=== PATIENT | male | born 1970 | race Caucasian/White ===

== ENCOUNTER 2020-07-06 11:47 | Day surgery (SDC) | payer OTHER ==
[~2020-07-06] VITALS: Ht 185.4 cm; Wt 106.8 kg
[~2020-07-06 11:47] MED LIST: ARTHRITIS PAIN100 GM TOP; CARDIZEM30 MG PO; GABAPENTIN300 MG PO; GLUCOSAMINE1000 MG PO; VITAMIN D-40010 MCG PO
[2020-07-06] MEDS ORDERED: ONE-DAILY MULT1 EAC1 PO (12:06)
--- NOTE | 2020-07-06 13:10 | NUR ---
07/06/20 1310 RUBEN MAGALLANES 1306-PATIENT ARRIVED TO PACU. AWAKE, RESPONDS TO ALL STIMULI. BREATHING EVEN AND UNLABORED, ON 2L OR. ABDOMEN SOFT. PATIENT DENIES DISCOMFORT.
--- NOTE | 2020-07-09 12:23 | OR ---
[facility] [address] [place], [place] [address] Signed DATE OF OPERATION: 07/06/2020 SURGEON: Andrei Roa MD PREOPERATIVE DIAGNOSES: 1. History of anal fissure with rectal bleeding (resolved). 2. Colon screening. POSTOPERATIVE DIAGNOSES: 1. Polyps x4 of colon. 2. Scattered shallow diverticula. PROCEDURE: Total colonoscopy to cecum with cold morcellation polypectomy x4. ANESTHESIA: Intravenous sedation, fentanyl 150 mcg, Versed 8 mg. INDICATIONS: This 49-year-old white man is a patient of CELIA Martell and known to me from the past. The patient has had problems of cough quite sometime ago of rectal bleeding, was found to have an anal fissure, was treated conservatively with diltiazem ointment and so forth. The symptoms ultimately resolved. As his presentation at that time was that of rectal bleeding, I had recommended that a colonoscopy be performed at some point, particularly given his age of 49 years. He currently is having no bleeding, pain upon defecation, or other issues. He has no family history of colon cancer that he is aware of. He is admitted at this time to undergo screening colonoscopy on the basis of his age primarily. He understands the risks of bleeding, infection, and perforation. FINDINGS: The prep was good. Complete colonoscopy was undertaken to the cecum. There was a polyp in the ascending colon, which was relatively small, but which was excised completely. Therefore, three additional polyps, two in the rectosigmoid and one in the rectum, all excised with cold morcellation technique. All the polyps were small and not worrisome for malignancy. DESCRIPTION OF PROCEDURE: The patient was brought to the endoscopy suite and placed in lateral decubitus position given intravenous sedation to the point of slurred speech and nystagmus. Full cardiopulmonary monitoring was maintained. Digital rectal examination showed no Electronically Signed By: ANDREI ROA MD 07/09/20 1223 PATIENT NAME: JAIME BENITEZ OPERATIVE REPORT DATE OF : 66 REPORT #: [id number] PHYSICIAN: ANDREI ROA MD PCP: LAZARO TIDWELL PA-C REPORT IS CONFIDENTIAL AND NOT TO BE RELEASED WITHOUT AUTHORIZATION [facility] [address] [place], [place] [address] Signed tenderness and no clinical findings suggestive of fissure or other abnormality. An Olympus video colonoscope was passed into the rectum and manipulated throughout the colon noting a few scattered diverticula throughout. Ultimately, the cecum was intubated. The ileocecal valve and appendiceal orifice were normal. Irrigation was undertaken in this area. Biopsies were taken of the cecum as there appeared to be mild inflammatory change. The scope was withdrawn from that point. In the proximal ascending colon, there was a small sessile polyp, which was excised with cold morcellation technique. The scope was further withdrawn and there were no other findings until the rectosigmoid, where two very small polyps were noted. Both were excised with cold morcellation technique. Further withdrawal of the rectum showed another similar such polyp that was excised as well, it may have been hyperplastic. Retroflexed view showed no sign of internal hemorrhoids. Careful withdrawal of scope through the anal canal showed no fissure. The scope was removed and the patient was taken to the recovery room in good condition. CONCLUDING DIAGNOSES: 1. Polyps x4, small and benign. 2. Scattered diverticula. 3. Healed anal fissure. PLAN: Recommend continued use of a high-fiber diet. Repeat colonoscopy in 5 years or sooner if symptoms should occur. We will review his pathology report to ascertain there were no adverse findings of the polyps. MD JETT Mosher/UMANGL /[id number] Copies: ~ Electronically Signed By: ANDREI ROA MD 07/09/20 1223 PATIENT NAME: JAIME BENITEZ OPERATIVE REPORT DATE OF : 66 REPORT #: [id number] PHYSICIAN: ANDREI ROA MD PCP: LAZARO TIDWELL PA-C REPORT IS CONFIDENTIAL AND NOT TO BE RELEASED WITHOUT AUTHORIZATION
--- NOTE | 2020-07-10 12:54 | PATH ---
[facility] [address] [place], [place] [address] Signed SPECIMEN(S): A CECUM SPECIMEN(S): B ASCENDING POLYP SPECIMEN(S): C SIGMOID POLYP SPECIMEN(S): D RECTAL POLYP SPECIMEN SOURCE: A. CECUM B. ASCENDING POLYP C. SIGMOID POLYP D. RECTAL POLYP CLINICAL HISTORY: Rectal bleeding/screening colonoscopy with possible biopsies. MICROSCOPIC DESCRIPTION: Histologic sections of all submitted blocks are examined by light microscopy. These findings, together with the gross examination, support the pathologic diagnosis. FINAL PATHOLOGIC DIAGNOSIS: A. Colon, cecum, biopsy: - Colonic mucosa with no histopathologic abnormality. - Negative for dysplasia or malignancy. B. Colon, ascending, polyp, polypectomy: - Fragments of tubular adenoma. - Negative for high-grade dysplasia or malignancy. C. Colon, sigmoid, polyp, polypectomy: - Hyperplastic polyp. - Negative for dysplasia or malignancy. D. Rectum, polyp, polypectomy: - Fragments of hyperplastic polyp. - Negative for dysplasia or malignancy. NAL:cml:C2NR GROSS DESCRIPTION: Four specimens are received in four containers, labeled "SB." A. The specimen, labeled "SB, 1," and designated on the requisition "cecum," is received in formalin and consists of two aguirre soft tissue fragments that measure 0.3 cm in greatest dimension. The specimen is entirely submitted in cassette (A1). B. The specimen, labeled "SB, 2," and designated on the requisition "ascending colon polyp," is received in formalin and consists of two aguirre soft tissue PATIENT NAME: JAIME BENITEZ PATHOLOGY DATE OF : 66 REPORT #: [id number] PHYSICIAN: PJ NASSAR PCP: LAZARO TIDWELL PA-C REPORT IS CONFIDENTIAL AND NOT TO BE RELEASED WITHOUT AUTHORIZATION [facility] [address] [place], [place] [address] Signed fragments that measure 0.2-0.3 cm in greatest dimension. The specimen is entirely submitted in cassette (B1). C. The specimen, labeled "SB, 3, rectosigmoid," and designated on the requisition "sigmoid," is received in formalin and consists of two aguirre soft tissue fragments that measure 0.3 cm in greatest dimension. The specimen is entirely submitted in cassette (C1). D. The specimen, labeled "SB, 4," and designated on the requisition "rectal polyp," is received in formalin and consists of two aguirre soft tissue fragments that measure 0.2-0.3 cm in greatest dimension. The specimen is entirely submitted in cassette (D1). AT (under the direct supervision of a pathologist) The Gross Description was prepared using a voice recognition system. The report was reviewed for accuracy; however, sound-alike word errors, addition and/or deletions may occur. If there is any question about this report, please contact Client Services. PERFORMING LABORATORY: The technical component was performed by [facility], [address] [place] [id number] (Carry Out Clerk: Pushpa Maravilla MD; CLIA# [id number]). [facility], [address] [address] (CLIA# [id number]). Diagnostician: Lianna Willoughby MD Pathologist Electronically Signed 07/10/2020 Copies: ~ PATIENT NAME: EMMANUELJAIME [facility] PATHOLOGY DATE OF : 66 REPORT #: [id number] PHYSICIAN: PJ PATHOLOGY PCP: LAZARO TIDWELL PA-C REPORT IS CONFIDENTIAL AND NOT TO BE RELEASED WITHOUT AUTHORIZATION
== END 2020-07-06 13:45 | disposition home or self-care (01) ==
LOC: OPS 11:47 → DS 11:50 → OPS 13:00 → DS 13:00 → OPS 13:45
PROVIDERS: ATTEND Surgery
PROC: 0DBE8ZZ Excision of Large Intestine, Via Natural or Artificial Opening Endoscopic (ICD-10-PCS; principal; 2020-07-06 13:00)
DX: Z12.11 Encounter for screening for malignant neoplasm of colon (principal); D12.2 Benign neoplasm of ascending colon; K63.5 Polyp of colon; K57.30 Diverticulosis of large intestine without perforation or abscess without bleeding
CPT/HCPCS: 99153; G0500; J2250; J3010